=== PATIENT | female | born 1975 | race Caucasian/White ===

== ENCOUNTER → 2016-08-09 | Outpatient (CLI) | payer MEDICAID | LOC: OD 17:20 | PROVIDERS: ATTEND Physician Assistant | DX: R05 Cough (principal) | CPT/HCPCS: 71020 ==

== ENCOUNTER → 2016-10-07 | Outpatient (CLI) | payer MEDICAID | LOC: WI 06:53 | PROVIDERS: ATTEND Physician Assistant | DX: Z12.31 Encounter for screening mammogram for malignant neoplasm of breast (principal) | CPT/HCPCS: 77063; G0202; 77067 ==

== ENCOUNTER → 2017-04-08 | Day surgery (SDC) | payer MEDICAID ==
[~2017-04-08] MED LIST: LIDOCAINE 1% INJ-PF (10 MG/ML) 30 ML SDV ONE
--- NOTE | 2017-04-08 14:46 | RADIOLOGY REPORT (SQ) ---
EXAM DESCRIPTION: ARTHRO SHOULDER INJECTION COMPLETED DATE/TIME: 04/08/2017 1:44 pm REASON FOR STUDY: SUPERIOR GLENOID LABRUM LESION OF SHOULDER JOINT (S43.431S) S43.431S SUPERIOR GLE NOID LABRUM LESION OF RIGHT SHOULDER, S COMPARISON: None. FLUOROSCOPY TIME: 10 seconds 1 digital radiographic images saved to PACS. LIMITATIONS: None. PROCEDURE: Procedure, risks, benefits and alternatives explained to patient who then gave written co nsent. The posterior right shoulder was marked and a time out was called for correct procedure verifi cation. Posterior entry site marked using fluoroscopic guidance. Shoulder prepped and draped using sterile technique. Local anesthesia achieved using 7 mL of 1% lidocaine injection. 22 gauge spinal needle introduced into the joint space under direct fluoroscopic visualization. Dilute gadolinium kevin ution then injected. Needle removed and entry site covered with sterile bandage. No immediate compli cations noted. TECHNIQUE: Digital images acquired during fluoroscopy and stored on PACS. Patient immediately take n to the MR suite for additional imaging. INJECTION LOCATION: Right posterior glenohumeral joint CONTRAST TYPE AND AMOUNT: Gadolinium only , 12 mL IMPRESSION: SUCCESSFUL NEEDLE PLACEMENT AND INJECTION FOR RIGHT SHOULDER MR ARTHROGRAM USING POSTERI OR APPROACH. COMMENT: Quality ID [id number]: Final reports for procedures using fluoroscopy that document radiation exp osure indices, or exposure time and number of fluorographic images (if radiation exposure indices are not available) TECHNICAL DOCUMENTATION: JOB ID: [id number] [employer]- All Rights Reserved
--- NOTE | 2017-04-08 16:17 | RADIOLOGY REPORT (SQ) ---
EXAM DESCRIPTION: MRI RT UPPER JOINT WITH COMPLETED DATE/TIME: 04/08/2017 2:21 pm REASON FOR STUDY: SUPERIOR GLENOID LABRUM LESION OF SHOULDER JOINT (S43.431S) S43.431S SUPERIOR GLE NOID LABRUM LESION OF RIGHT SHOULDER, S COMPARISON: None. TECHNIQUE: Right shoulder images acquired and stored on PACS. Oblique coronal, oblique sagittal, and axial imaging to include fat sensitive sequences as T1, water sensitive sequences as FST2/STIR, and contrast sensitive sequences as FST1. LIMITATIONS: None. FINDINGS: JOINT DISTENTION: Adequate distention for interpretation. No leakage of contrast into the subacromial/subdeltoid bursa BONE MARROW AND CORTEX: Tiny subcortical cysts are present along the posterior right humeral head gre ater tuberosity. No marrow signal abnormalities worrisome for occult fracture or aggressive marrow r eplacement process. AC JOINT: Type II acromion. Very mild AC joint arthropathy. GLENOHUMERAL JOINT: No subluxation or dislocation. No focal chondral defects or reactive bone changes . ROTATOR CUFF: There is mild undersurface increased signal in the infraspinatus tendon worrisome for p artial thickness undersurface tear or tendinopathy. Remainder of the rotator cuff is intact. LABRUM AND BICEPS LABRAL COMPLEX: Rotator interval, intra-articular long head biceps tendon intact. Biceps attachment to the glenoid labrum is intact. However, the posterosuperior labrum is small, wor risome for tear best shown on axial images 6-8. No paralabral cyst. INFERIOR LABRAL COMPLEX: Bony glenoid and labrum intact. IGHL intact without thickening or tear. No p aralabral cysts. ADJACENT SOFT TISSUES: No masses or nodes. OTHER: No other significant finding. IMPRESSION: Suspect a small posterosuperior labral tear without paralabral cyst. Tendinopathy, undersurface of the distal infraspinatus tendon TECHNICAL DOCUMENTATION: JOB ID: [id number] [employer]- All Rights Reserved
== END ==
LOC: RAD 12:34
PROVIDERS: ATTEND Orthopaedic Surgery
PROC: BP08ZZZ Plain Radiography of Right Shoulder (ICD-10-PCS; principal; 2017-04-08)
DX: S43.431S Superior glenoid labrum lesion of right shoulder, sequela (principal); X58.XXXS Exposure to other specified factors, sequela
CPT/HCPCS: 73222; 77002; 23350; A9576; J3490